=== PATIENT | female | born 1990 | race African-American/Black ===

== ENCOUNTER 2019-01-18 20:32 | Inpatient (IN) ==
[2019-01-18 21:08] LABS: Basophils % 0.3 % (0.0-0.8); Eosinophils # 0.1 10*3/uL (0.0-0.87); Eosinophils % 0.7 % (0.00-10.9); Hematocrit 34.8 VOL% (35.7-47.0); Immature Granulocytes % 0.3 %; Immature Granulocytes Absolute 0.04 #; Lymphocytes # 3.7 10*3/uL (1.4-4.0); Lymphocytes % 27.4 % (21.3-54.2); Mean Corpuscular HGB Conc 31.6 GM/DL (32-36); Mean Corpuscular Hemoglobin 27 PG (27-34); Mean Corpuscular Volume 86.8 FL (87-102); Mean Platelet Volume 10.1 FL (9.6-12.0); Monocytes % 7.2 % (1.7-12.7); Neutrophils # 8.6 10*3/uL (1.4-7.4); Neutrophils % 64.1 % (38.7-73.9); Platelet Count 346 T/CUMM (130-400); Red Blood Count 4.01 MC/CUMM (3.8-5.5); Red Cell Distribution Width 14.3 % (9.3-17.3); White Blood Count 13.5 T/CUMM (4-12)
[2019-01-18] MEDS ORDERED: SUMAtriptan 6 MG/0.5 ML VIAL SUBCUT STA (21:09)
[2019-01-18] MEDS ORDERED: diphenhydrAMINE 50 MG/1 ML VIAL IV STA (21:09)
[2019-01-18 21:20] LABS: Albumin 3.6 G/DL (3.4-5.0); Calcium 8.4 MG/DL (8.5-10.1); Osmolality,Calculated 274.5 MOS/KG (273-304); Potassium 3.5 MMOL/L (3.5-5.1); Total Protein 7.7 G/DL (6.4-8.3)
[2019-01-18 21:21] LABS: Troponin I < 0.015 NG/ML (0.00-0.045)
[2019-01-18 21:22] LABS: INR 0.9; PT Patient Result 9.6 SECS; Partial Thromboplastin Time 27.8 SECS (0-40)
[2019-01-18 21:52] LABS: Apearance,Urine CLEAR (Clear); Bacteria,Urine Many /HPF (Few); Bilirubin,Urine Negative (Negative); Blood, Urine Negative (Negative); Glucose,Urine (UA) Negative (Negative); Ketones,Urine Negative (Negative); Nitrite,Urine Negative (Negative); Protein,Urine Negative; RBC,Urine 1 /HPF (0-4); Squamous Epithelial Cell,Urine Occasional /HPF (0-10); Urine Color Straw (Yellow); Urine Specific Gravity 1.006 (1.001-1.035); Urine Urobilinogen < 2.0 EU/DL (0.2-1.0); WBC,Urine 1 /HPF (0-6)
[2019-01-18 22:01] LABS: Barbiturates Screen,Urine Negative (Negative); Benzodiazepines Screen,Urine Negative (Negative); Cannabinoid Screen,Urine Positive (Negative); Opiate Screen,Urine Negative (Negative); Phencyclidine Screen,Urine Negative (Negative)
[2019-01-18] MEDS ORDERED: diphenhydrAMINE CAP 25 MG CAPSULE PO PRN (23:13)
[2019-01-18] MEDS ORDERED: PROMETHAZINE 25 MG/1 ML VIAL IM PRN (23:13)
[2019-01-18] MEDS ORDERED: NICOTINE 21 MG/24 HR PATCH TRANSDERM PRN (23:13)
[2019-01-18] MEDS ORDERED: ACETAMINOPHEN 325 MG TABLET PO PRN (23:13)
[2019-01-18] MEDS ORDERED: ONDANSETRON 4 MG/2 ML VIAL IV PRN (23:13)
[2019-01-19] MEDS: SODIUM CHLORIDE 0.9% 1,000 ML IV SCH ×3 (00:23→17:03)
[2019-01-19] MEDS: MORPHINE 4 MG/1 ML VIAL IV PRN ×2 (00:24→21:19)
[2019-01-19] MEDS ORDERED: ALBUTEROL 2.5 MG/3 ML NEB RESP TX PRN (01:02)
[2019-01-19] MEDS: levETIRAcetam 500 MG TABLET PO SCH ×2 (01:39→08:14)
[2019-01-19 10:05] VITALS: BP 101/67
[2019-01-19] MEDS: BUTALBITAL/ACETAMIN/CAFFEINE 50-325-40 MG TABLET PO PRN ×3 (11:48→21:18)
[2019-01-19 12:01] LABS: Basophils # 0.1 10*3/uL (0.0-0.2); Basophils % 0.4 % (0.0-0.8); Eosinophils # 0.1 10*3/uL (0.0-0.87); Eosinophils % 0.7 % (0.00-10.9); Hematocrit 34.1 VOL% (35.7-47.0); Hemoglobin 10.7 GM/DL (12.0-16.0); Immature Granulocytes % 0.3 %; Immature Granulocytes Absolute 0.03 #; Lymphocytes % 27.1 % (21.3-54.2); Mean Corpuscular HGB Conc 31.4 GM/DL (32-36); Mean Corpuscular Hemoglobin 27 PG (27-34); Mean Corpuscular Volume 87.4 FL (87-102); Mean Platelet Volume 9.9 FL (9.6-12.0); Monocytes # 0.6 10*3/uL (0.11-0.8); Monocytes % 5.5 % (1.7-12.7); Neutrophils # 7.4 10*3/uL (1.4-7.4); Platelet Count 310 T/CUMM (130-400); Red Cell Distribution Width 14.4 % (9.3-17.3); White Blood Count 11.2 T/CUMM (4-12)
[2019-01-19 12:26] LABS: INR 0.9; Partial Thromboplastin Time 25.2 SECS (0-40)
[2019-01-19 12:29] LABS: Albumin 3.4 G/DL (3.4-5.0); Bilirubin,Total 0.4 MG/DL (0.2-1.0); Calcium 8.1 MG/DL (8.5-10.1); Osmolality,Calculated 269.8 MOS/KG (273-304); Potassium 3.8 MMOL/L (3.5-5.1); Total Protein 7.3 G/DL (6.4-8.3)
[2019-01-19] MEDS: PANTOPRAZOLE 40 MG VIAL IV SCH (16:55)
[2019-01-19] MEDS: levETIRAcetam 250 MG TABLET PO SCH (21:17)
[2019-01-20] MEDS: SODIUM CHLORIDE 0.9% 1,000 ML IV SCH ×2 (01:03→08:17)
[2019-01-20] MEDS: MORPHINE 4 MG/1 ML VIAL IV PRN ×2 (01:11→06:33)
[2019-01-20] MEDS: BUTALBITAL/ACETAMIN/CAFFEINE 50-325-40 MG TABLET PO PRN ×2 (07:58→13:05)
[2019-01-20] MEDS: levETIRAcetam 250 MG TABLET PO SCH (08:01)
[2019-01-20] MEDS: PANTOPRAZOLE 40 MG VIAL IV SCH (13:08)
[2019-01-20] MEDS ORDERED: PANTOPRAZOLE 40 MG TABLET PO SCH (13:30)
== END 2019-01-20 16:03 | disposition home or self-care (01) | DRG 812 ==
LOC: N.EDINP 20:32 → N.ED 20:32 → N.5E 01-19 00:29 → N.ICU 01-19 11:30
PROVIDERS: ADMIT Hospitalist; ATTEND Hospitalist

== ENCOUNTER 2019-03-18 19:45 | Inpatient (IN) ==
[2019-03-18] MEDS ORDERED: SODIUM CHLORIDE 0.9% 1,000 ML IV STA (20:24)
[2019-03-18 20:43] LABS: Basophils % 0.5 % (0.0-0.8); Eosinophils # 0.1 10*3/uL (0.0-0.87); Eosinophils % 1.1 % (0.00-10.9); Hematocrit 34.9 VOL% (35.7-47.0); Hemoglobin 10.9 GM/DL (12.0-16.0); Immature Granulocytes % 0.2 %; Immature Granulocytes Absolute 0.02 #; Lymphocytes # 2.7 10*3/uL (1.4-4.0); Lymphocytes % 32.8 % (21.3-54.2); Mean Corpuscular HGB Conc 31.2 GM/DL (32-36); Mean Corpuscular Volume 88.6 FL (87-102); Mean Platelet Volume 9.5 FL (9.6-12.0); Monocytes % 8.5 % (1.7-12.7); Neutrophils % 56.9 % (38.7-73.9); Platelet Count 317 T/CUMM (130-400); Red Blood Count 3.94 MC/CUMM (3.8-5.5); Red Cell Distribution Width 13.3 % (9.3-17.3); White Blood Count 8.3 T/CUMM (4-12)
[2019-03-18 20:52] LABS: Alanine Aminotransferase 40 U/L (13-56); Albumin 3.2 G/DL (3.4-5.0); Alkaline Phosphatase 84 U/L (45-117); Aspartate Amino Transferase 18 U/L (0-37); Bilirubin,Total < 0.39 MG/DL (0.2-1.0); Blood Urea Nitrogen 10 MG/DL (7-18); Calcium 8.4 MG/DL (8.5-10.1); Glucose 95 MG/DL (74-106); Osmolality,Calculated 277.4 MOS/KG (273-304); Total Protein 7.3 G/DL (6.4-8.3)
[2019-03-18] MEDS ORDERED: ONDANSETRON 4 MG/2 ML VIAL IV ONE (21:26)
[2019-03-18] MEDS ORDERED: MORPHINE 4 MG/1 ML VIAL IV STA (21:26)
[2019-03-18 21:41] LABS: Apearance,Urine CLEAR (Clear); Bacteria,Urine Occasional /HPF (Few); Bilirubin,Urine Negative (Negative); Blood, Urine Negative (Negative); Glucose,Urine (UA) Negative (Negative); Ketones,Urine Negative (Negative); Mucus,Urine Occasional /LPF (Occasional); Nitrite,Urine Negative (Negative); Protein,Urine Negative; RBC,Urine 1 /HPF (0-4); Squamous Epithelial Cell,Urine Occasional /HPF (0-10); Urine Color Yellow (Yellow); Urine Specific Gravity 1.012 (1.001-1.035); Urine Urobilinogen < 2.0 EU/DL (0.2-1.0); WBC,Urine <1 /HPF (0-6)
[2019-03-18 21:47] LABS: Barbiturates Screen,Urine Positive (Negative); Benzodiazepines Screen,Urine Positive (Negative); Cannabinoid Screen,Urine Negative (Negative); Opiate Screen,Urine Negative (Negative); Phencyclidine Screen,Urine Negative (Negative)
[2019-03-18] MEDS ORDERED: POTASSIUM CHLORIDE 20 MEQ TABLET PO PRN (23:47)
[2019-03-19] MEDS: levETIRAcetam 500 MG TABLET PO SCH ×3 (00:40→20:16)
[2019-03-19] MEDS ORDERED: LORazepam 2 MG/1 ML VIAL IV PRN (01:04)
[2019-03-19] MEDS: ONDANSETRON 4 MG/2 ML VIAL IV PRN ×2 (01:27→12:14)
[2019-03-19] MEDS: MORPHINE 4 MG/1 ML VIAL IV PRN ×3 (01:31→12:14)
[2019-03-19] MEDS ORDERED: ALBUTEROL 2.5 MG/3 ML NEB RESP TX PRN (07:01)
[2019-03-19] MEDS: CYPROHEPTADINE 4 MG TABLET PO SCH ×2 (09:14→20:15)
[2019-03-19] MEDS: ENOXAPARIN 40 MG/0.4 ML SYRINGE SUBCUT SCH (09:14)
[2019-03-19] MEDS: PANTOPRAZOLE 40 MG TABLET PO SCH (09:15)
[2019-03-19] MEDS: CETIRIZINE 10 MG TABLET PO SCH (09:15)
[2019-03-19] MEDS ORDERED: ACETAMINOPHEN 325 MG TABLET PO PRN (11:32)
[2019-03-19 11:35] LABS: Calcium 8.2 MG/DL (8.5-10.1); Osmolality,Calculated 277.3 MOS/KG (273-304)
[2019-03-19] MEDS: BUTALBITAL/ACETAMIN/CAFFEINE 50-325-40 MG TABLET PO PRN ×2 (18:30→22:59)
[2019-03-20] MEDS: BUTALBITAL/ACETAMIN/CAFFEINE 50-325-40 MG TABLET PO PRN ×2 (07:24→16:10)
[2019-03-20] MEDS ORDERED: SERTRALINE 25 MG TABLET PO SCH (09:00)
[2019-03-20] MEDS ORDERED: LORazepam 2 MG/1 ML VIAL ONE (09:02)
[2019-03-20] MEDS ORDERED: LORazepam 2 MG/1 ML VIAL IV ONE ×2 (09:05→09:23)
[2019-03-20 09:32] LABS: Calcium 8.8 MG/DL (8.5-10.1); Osmolality,Calculated 276.4 MOS/KG (273-304)
[2019-03-20] MEDS: CYPROHEPTADINE 4 MG TABLET PO SCH ×2 (09:46→20:49)
[2019-03-20] MEDS: levETIRAcetam 500 MG TABLET PO SCH ×2 (09:47→20:50)
[2019-03-20] MEDS: PANTOPRAZOLE 40 MG TABLET PO SCH (09:47)
[2019-03-20] MEDS: CETIRIZINE 10 MG TABLET PO SCH (09:47)
[2019-03-20] MEDS: ENOXAPARIN 40 MG/0.4 ML SYRINGE SUBCUT SCH (09:49)
[2019-03-20] MEDS ORDERED: ZIPRASIDONE 20 MG/1 ML VIAL IM ONE (17:54)
[2019-03-21] MEDS: levETIRAcetam 500 MG TABLET PO SCH (00:59)
[2019-03-21 01:57] VITALS: BP 149/67
== END 2019-03-21 01:27 | disposition left against medical advice (07) | DRG 756 ==
LOC: EDUNIT# → EDBD → N.EDINP 19:45 → N.ED 19:45 → N.2E 03-19 00:44
PROVIDERS: ADMIT Internal Medicine; ATTEND Internal Medicine